=== PATIENT | female | born 1990 | race Two or more races ===

== ENCOUNTER 2022-07-12 19:25 | Emergency (ER) | payer MEDICAID ==
[~2022-07-12] VITALS: Ht 157.5 cm; Wt 68.0 kg
[2022-07-12 19:27] VITALS: BP_SYST 113
--- NOTE | 2022-07-12 19:30 | NUR ---
PER PATIENT, PATIENT HAS HAD SORE THROAT, HEADACHE AND LEFT EAR PAIN X 2 WEEKS. TELEHEALTH STATES SHE JUST HAS ALLERGIES BUT STATES IT'S NOT GETTING BETTER.
--- NOTE | 2022-07-12 20:52 | NUR ---
Patient ambulatory to bed formerly [facility] for evaluation and treatment
--- NOTE | 2022-07-12 20:55 | NUR ---
ER at bedside examining patient.
[2022-07-12] MEDS ORDERED: PRED20TA PO (21:06)
[2022-07-12] MEDS ORDERED: IBUP-1971 PO (21:06)
[2022-07-12] MEDS ORDERED: PSEU120T57 PO (21:06)
--- NOTE | 2022-07-12 21:11 | NUR ---
Patient given written and verbal discharge instructions and verbalizes understanding. ER MD discussed with patient the results and treatment provided. Patient in stable condition. ID arm band removed. IV catheter removed intact and dressing applied, no active bleeding. Rx of IBUPROFEN, SUDAFED, PREDNISONE given. Patient educated on pain management and to follow up with PMD. Pain Scale . Opportunity for questions provided and answered. Medication side effect fact sheet provided.
== END 2022-07-12 21:11 | disposition home or self-care (01) ==
LOC: SED 19:25
DX: J01.90 Acute sinusitis, unspecified (principal); H92.02 Otalgia, left ear; Z79.899 Other long term (current) drug therapy
CPT/HCPCS: 99283

== ENCOUNTER 2022-07-23 11:52 | Emergency (ER) | payer MEDICAID ==
[~2022-07-23] VITALS: Ht 157.5 cm; Wt 68.0 kg
[~2022-07-23 11:52] MED LIST: IBUP-1971 PO; PRED20TA PO; PSEU120T57 PO
--- NOTE | 2022-07-23 12:00 | NUR ---
pt brought by self, A&Ox4, pt presents to ER with cough/ congestion, O2 98%, skin pink and warm, respirations even and unlabored, will cont to monitor.
[2022-07-23 12:12] VITALS: BP_SYST 111
--- NOTE | 2022-07-23 12:20 | NUR ---
Dr Murray evaluating patient at bedside
--- NOTE | 2022-07-23 13:12 | NUR ---
COVID SWAB OBTAINED AND SENT TO LAB.
[2022-07-23] MEDS ORDERED: IBUP-1969 PO (14:06)
[2022-07-23] MEDS ORDERED: PSEU30TA36 PO (14:06)
[2022-07-23 14:55] VITALS: BP_SYST 111
--- NOTE | 2022-07-23 14:55 | NUR ---
Patient given written and verbal discharge instructions and verbalizes understanding. ER MD discussed with patient the results and treatment provided. Patient in stable condition. ID arm band removed. Rx of Ibuprofen and Sudafed given. Patient educated on pain management and to follow up with PMD. Pain Scale 0/10 . Opportunity for questions provided and answered. Medication side effect fact sheet provided.
== END 2022-07-23 14:55 | disposition home or self-care (01) ==
LOC: SED 11:52
DX: J20.9 Acute bronchitis, unspecified (principal); B34.9 Viral infection, unspecified; R50.9 Fever, unspecified; R05.9 Cough, unspecified; Z79.899 Other long term (current) drug therapy; Z20.822 Contact with and (suspected) exposure to COVID-19
CPT/HCPCS: 36415; 71045; 99284